=== PATIENT | female | born 1980 | race Caucasian/White ===

== ENCOUNTER 2018-06-19 08:15 | Day surgery (SDC) | payer OTHER ==
[~2018-06-19] VITALS: Ht 167.6 cm; Wt 54.0 kg
[~2018-06-19 08:15] MED LIST: EMBREL PO
[2018-06-19] MEDS ORDERED: PERCOCET 5-3251 EACH PO (16:45)
[2018-06-19] MEDS ORDERED: RECTICARE30 GM TOP (16:46)
[2018-06-19] MEDS ORDERED: MOXIFLOXACIN H400 MG PO (16:47)
== END 2018-06-19 16:41 | disposition home or self-care (01) ==
LOC: ER 08:15 → CIR.AMB 13:00 → O/R 13:04 → ER 13:04 → CIR.AMB 16:41 → O/R 20:05
DX: K61.0 Anal abscess (principal)